=== PATIENT | male | born 1975 | race Caucasian/White ===

== ENCOUNTER → 2022-05-24 | Outpatient (CLI) | payer BC | LOC: M SLEEP HO 13:49 | PROVIDERS: ATTEND Family Medicine | DX: R06.83 Snoring (principal) ==

== ENCOUNTER → 2022-06-29 | Outpatient (CLI) | payer BC ==
[~2022-06-29] MED LIST: OMEP10CASR PO; VITMTA PO
== END ==
LOC: M LABSMTC 10:12
PROVIDERS: ATTEND Anesthesiology
DX: Z01.812 Encounter for preprocedural laboratory examination (principal); Z20.822 Contact with and (suspected) exposure to COVID-19

== ENCOUNTER 2022-07-04 09:51 | Day surgery (SDC) | payer BC ==
[~2022-07-04] VITALS: Ht 177.8 cm; Wt 114.3 kg
[~2022-07-04 09:51] MED LIST changes: +NS 1,000 ML IV ONE
[2022-07-04] MEDS ORDERED: LIDOCAINE 2% 100MG/5ML SDV (FOR ANES.) As Ordered ONE (10:52)
[2022-07-04] MEDS ORDERED: propofoL 200 MG/20 ML VIAL As Ordered ONE (10:52)
[2022-07-04 11:20] VITALS: BP 134/76
== END 2022-07-04 11:27 | disposition home or self-care (01) ==
LOC: M OPP 09:51
PROVIDERS: ATTEND Surgery
DX: Z12.11 Encounter for screening for malignant neoplasm of colon (principal); Z86.010 Personal history of colon polyps; Z85.038 Personal history of other malignant neoplasm of large intestine; Z79.899 Other long term (current) drug therapy; Z87.442 Personal history of urinary calculi; Z87.891 Personal history of nicotine dependence; Z90.49 Acquired absence of other specified parts of digestive tract

== ENCOUNTER → 2022-09-21 | Outpatient (CLI) | payer BC ==
[~2022-09-21] MED LIST changes: -NS 1,000 ML IV ONE
[2022-09-21 09:20] LABS: BASO # 0.1 10^3/uL (0.0-0.2); BASO % 0.7 % (0.0-1.0); EOS # 0.1 10^3/uL (0.0-0.5); EOS % 1.6 % (0.0-3.0); HEMOGLOBIN 14.9 g/dl (13.5-17.5); LYMPH # 1.6 10^3/uL (1.5-5.0); LYMPH % 23.6 % (24.0-44.0); MEAN CORPUSCULAR HEMOGLOBIN 28.7 pg (27.0-33.0); MEAN CORPUSCULAR HGB CONC 32.4 g/dl (32.0-36.5); MEAN CORPUSCULAR VOLUME 88.5 fl (80.0-96.0); MONO # 0.4 10^3/uL (0.0-0.8); MONO % 5.9 % (2.0-8.0); NEUTROPHILS # 4.6 10^3/uL (1.5-8.5); NEUTROPHILS % 67.9 % (36.0-66.0); PLATELET COUNT, AUTOMATED 280 10^3/uL (150-450); WHITE BLOOD COUNT 6.8 10^3/uL (4.0-10.0)
[2022-09-21 09:55] LABS: ALBUMIN 3.7 G/DL (3.2-5.2); ALKALINE PHOSPHATASE 114 U/L (46-116); ALT/SGPT 33 U/L (7.0-40); AST/SGOT 19 U/L (<34); BILIRUBIN,TOTAL 0.7 MG/DL (0.3-1.2); BLOOD UREA NITROGEN 14 MG/DL (9-23); CALCIUM LEVEL 8.8 MG/DL (8.5-10.1); CARBON DIOXIDE LEVEL 28 MMOL/L (20-31); CHLORIDE LEVEL 105 MMOL/L (98-107); CHOLESTEROL LEVEL 169 MG/DL (<200); CHOLESTEROL RISK RATIO 3.75 (<5); GLOMERULAR FILTRATION RATE > 60.0 (>60); GLUCOSE, FASTING 105 MG/DL (60-100); POTASSIUM SERUM 4.1 MMOL/L (3.5-5.1); SODIUM LEVEL 140 MMOL/L (136-145); TOTAL PROTEIN 6.9 G/DL (5.7-8.2); TRIGLYCERIDES LEVEL 130 MG/DL (<150)
[2022-09-21 10:03] LABS: FREE T4 1.14 NG/DL (0.89-1.76); THYROID STIMULATING HORMONE 0.701 uIU/ML (0.55-4.78); TOTAL 25(OH) VITAMIN D 18.5 NG/ML (20.0-100.0)
[2022-09-21 10:18] LABS: HEMOGLOBIN A1c 5.5 % (4.0-6.0)
== END ==
LOC: M LAB 08:53
PROVIDERS: ATTEND Physician Assistant
DX: Z12.5 Encounter for screening for malignant neoplasm of prostate (principal)

== ENCOUNTER → 2023-10-10 | Outpatient (CLI) | payer BC | LOC: M RAD 11:00 | PROVIDERS: ATTEND Physician Assistant | DX: M25.562 Pain in left knee (principal) ==